=== PATIENT | female | born 1990 | race Caucasian/White ===

== ENCOUNTER 2023-10-28 12:22 | Emergency (ER) | payer OTHER, SELFPAY ==
[2023-10-28 12:23] VITALS: BP 126/80; PULSE 79; RESP 16; TEMP 36.3; O2SAT 99; BMI 28.8
[2023-10-28 13:54] LABS: Absolute Lymphocyte Count 1.69 X10^3/uL (0.83-4.51); Absolute Neutrophil Count 4.7 X10^3/uL (2.0-7.7); Basophil# 0.04 X10^3/uL; Basophil% 0.6 % (0-1); Eosinophil# 0.12 X10^3/uL; Eosinophils% 1.7 % (0-5); Hematocrit 38.5 % (37-47); Hemoglobin 12.3 g/dL (12.0-15.0); Lymphocyte # 1.69 X10^3/ul (0.83-4.51); Lymphocyte % 24.6 % (19-41); Mean Corp Hgb Conc 31.9 g/dL (32-36); Mean Corpuscular Hgb 28.5 pg (27.0-32.0); Mean Corpuscular Volume 89.3 fL (81-99); Mean Platelet Vol. 10.7 fl (6.2-12.0); Monocyte# 0.34 X10^3/uL; Monocyte% 4.9 % (0-10); NRBC Flagged by Analyzer 0 % (0-5); Neutrophil # 4.67 X10^3/uL (2.7-7.7); Neutrophil % 67.9 % (47-70); Platelet Count 239 K/mm3 (150-450); RBC Distribution Width CV 12.1 % (11.6-14.6); RBC Distribution Width SD 39.3 fl (35.1-43.9); Red Blood Count 4.31 M/mm3 (4.2-5.4); White Blood Count 6.9 K/mm3 (4.4-11.0)
[2023-10-28 14:11] LABS: hCG Titer Quant., Serum 25 mIU/mL (1-3)
[2023-10-28 14:12] LABS: ALB/GLOB Ratio 1.1 RATIO (0.9-2.4); AST(SGOT) < 3 U/L (15-37); Alanine Aminotransfer ALT/SGPT 26 U/L (13-56); Albumin, Serum 3.9 g/dL (3.2-5.0); Alkaline Phosphatase 53 U/L (45-117); Anion Gap 7 (5-15); BUN 13 mg/dL (7-18); BUN/Creat Ratio 18.8 RATIO (10-20); Calcium,Total 9.1 mg/dL (8.5-10.1); Chloride 106 mmol/L (98-107); Creatinine, Serum 0.69 mg/dL (0.55-1.02); EST Glomerular Filtration Rate 104 mL/min (>60); Est Glom Filt Rate - Afr Amer 126 mL/min (>60); Estimated Creatinine Clearance 134.51 ml/min; Globulin 3.7 g/dL (2.2-4.2); Glucose 95 mg/dL (74-106); Potassium 3.8 mmol/L (3.5-5.1); Protein, Total 7.6 g/dL (6.4-8.2); Sodium Level 140 mmol/L (136-145)
[2023-10-28 15:13] LABS: Bacteria 0 SEEN /hpf (None Seen); Mucous, Urine 0 SEEN /hpf (<or=2+); Red Blood Cells-Urine 0 SEEN /hpf (0-5); Squamous Epithelial Cells - UA 0 SEEN /hpf (5-10); White Blood Cells 0 SEEN /hpf (0-5)
[2023-10-28 15:24] LABS: Color, Urine Yellow (Yellow); Glucose, Dipstick Normal (Normal); Ketone-Dipstick Negative (Negative); Leukocyte Esterase-Dipstick Negative /ul (Negative); Nitrite-Dipstick Negative (Negative); Occult Blood-Urine Negative /ul (Negative); Protein-Dipstick Negative (Negative); Urine Bilirubin Dipstick Negative (Negative); Urine Clarity Clear (Clear); Urine Urobilinogen Normal (Normal); Urine pH 6.5 (5.0 - 8.0)
--- NOTE | 2023-10-28 15:28 | ED.VIS.FEGU ---
HPI HPI - Female History of Present Illness Chief Complaint: Vag Bld, Preg Informant: patient Pain Pain: Positive for Pelvic Pain Onset: Today Context: Sudden Onset Timing: Continuous Quality: Positive for Cramping Location: Suprapubic Bleeding Issue: Positive for Vaginal bleeding and Passing clots Onset: Today Context: Sudden Onset Timing: Continuous Current Severity: Heavy Maximum Severity: Heavy Associated Symptoms Associated Symptoms: Negative for Dysuria or Frequency Test: Positive Narrative Narrative: Patient presents with vaginal bleeding that became worse today. Patient states she started passing clots. Patient states she was saturating 1 tampon per hour earlier today. Patient states she was recently diagnosed with an incomplete miscarriage. Patient states she was told if she started to saturate a pad or tampon every hour she should come to the emergency department. Patient admits to some lower abdominal cramping. Patient states her bleeding is heavy. Patient denies passing any tissue. Patient denies any fevers or chills. PFSH PFSH Medical History no medical history no medical history Home Medications benzonatate 100 mg capsule 200 mg (2 x 100 mg) PO TID PRN PRN Cough ##20 02/21/15 [Rx Last Taken Unknown] ondansetron 4 mg disintegrating tablet 4 mg PO Q8H PRN PRN Nausea #10 tabs 02/21/15 [Rx Last Taken Unknown] dicyclomine 10 mg capsule 20 mg (2 x 10 mg) PO TIDAC PRN Abdominal Pain ##20 06/07/15 [Rx Last Taken Unknown] famotidine 20 mg tablet 20 mg PO BID ##28 06/07/15 [Rx Last Taken Unknown] ondansetron 4 mg disintegrating tablet 4 mg PO Q8H PRN PRN Nausea #10 tabs 06/07/15 [Rx Last Taken Unknown] Allergy/AdvReac Type Severity Reaction Status Date / Time latex Allergy Rash Verified 02/21/15 16:44 Surgical History (Updated 10/28/23 @ 15:[address] Yonny Apodaca DO) Hx of laparoscopy Social History Smoking Status: Current every day smoker tobacco type: cigarettes ROS ROS ED Constitutional Constitutional ED: Denies chills or fever(s) Eyes Eyes: Denies blurry vision or change in vision ENT ENT ED: Denies rhinorrhea or sore throat Cardiovascular Cardiovascular: Denies chest pain or palpitations Respiratory/Chest Respiratory/Chest: Denies cough or dyspnea Gastrointestinal Gastrointestinal: Reports abdominal pain; Denies nausea or vomiting Genitourinary Genitourinary ED: Denies dysuria or hematuria Musculoskeletal Musculoskeletal: Denies back pain or neck pain Integumentary Denies abscess or rash Neurologic Neurologic: Denies headache(s) or weakness Allergic/Immunologic Allergic/Immunologic ED: Denies mouth swelling or urticaria EXAM Physical Exam Const Vital Signs: 10/28/23 12:23 10/28/23 16:00 10/28/23 18:00 Temperature 97.3 F L Temperature Source Temporal Pulse Rate 79 70 Respiratory Rate 16 16 16 Blood Pressure 126/80 H 117/74 123/68 H Blood Pressure Mean 95 88 86 Pulse Ox 99 100 100 Oxygen Delivery Method Room Air Room Air Room Air Positive well nourished and well developed General Appearance ED: well developed and NAD HEENT Reports moist mucous membranes Neck supple and no JVD Resp normal respiratory effort and clear to auscultation bilaterally Cardio regular rate and regular rhythm GI soft to palpation and non-distended Palpation: tender suprapubic (Mild) Extremity full ROM Neuro oriented x3, CN's II-XII intact bilaterally and no sensory deficits noted Sensorium / Orientation: alert Motor Exam: strength 5/5 throughout Psych mental status grossly normal MDM MDM MDM Narrative Medical decision making narrative: Differential diagnosis includes incomplete miscarriage, dysmenorrhea, urinary tract infection, and anemia. CBC will be obtained to assess for anemia and leukocytosis. Comprehensive metabolic profile will be obtained to assess for hepatic function, renal function, and electrolyte abnormality. Quantitative hCG will be obtained to assess for . Type and Rh will be obtained to assess for Rh factor. Urinalysis will be obtained to assess for urinary tract infection and hematuria. Lab Data Attestation: I reviewed the patient's lab results. Lab results narrative: CBC was reviewed and was within normal limits. Comprehensive metabolic profile was reviewed and was essentially within normal limits. Quantitative hCG was reviewed and was 25. Urinalysis was reviewed. There is no evidence of urinary tract infection or hematuria. Blood type was reviewed and was A negative. Labs: Laboratory Results - last 24 hr 10/28/23 10/28/23 10/28/23 13:45 15:10 16:54 WBC 6.9 RBC 4.31 Hgb 12.3 Hct 38.5 MCV 89.3 MCH 28.5 MCHC 31.9 L RDW Std Deviation 39.3 RDW Coeff of Joycelyn 12.1 Plt Count 239 MPV 10.7 Immature Gran % (Auto) 0.300 Neut % (Auto) 67.9 Lymph % (Auto) 24.6 [place] % (Auto) 4.9 Eos % (Auto) 1.7 Baso % (Auto) 0.6 Absolute Neuts (auto) 4.7 Absolute Lymphs (auto) 1.69 Nucleated RBC % 0 Sodium 140 Potassium 3.8 Chloride 106 Carbon Dioxide 27.0 Anion Gap 7 BUN 13 Creatinine 0.69 Estim Creat Clear Calc 134.51 Est GFR (MDRD) Af Amer 126 Est GFR (MDRD) Non-Af 104 BUN/Creatinine Ratio 18.8 Glucose 95 Calcium 9.1 Total Bilirubin 0.20 AST < 3 L ALT 26 Alkaline Phosphatase 53 Total Protein 7.6 Albumin 3.9 Globulin 3.7 Albumin/Globulin Ratio 1.1 HCG, Quant 25 H Urine Color Yellow Urine Clarity Clear Urine pH 6.5 Ur Specific Jbphh 1.020 Urine Protein Negative Urine Glucose (UA) Normal Urine Ketones Negative Urine Occult Blood Negative Urine Nitrite Negative Urine Bilirubin Negative Urine Urobilinogen Normal Ur Leukocyte Esterase Negative Urine RBC 0 SEEN Urine WBC 0 SEEN Ur Squamous Epith Cells 0 SEEN Urine Bacteria 0 SEEN Urine Mucus 0 SEEN Blood Type A NEGATIVE Treatment and Re-Evaluation Narrative: Patient was advised of her findings. Given her quantitative hCG of only 25, I do not feel ultrasound is necessary at this time. Patient's blood type was a negative. Therefore, patient was given RhoGAM. Patient was instructed to follow-up with her SHIFT [facility]INEER in 2 to 3 days. Patient understood and was agreeable with the plan. All questions were answered. Discharge Plan Triage Chief Complaint: Vag Bld, Preg ED Provider: Yonny Apodaca Dx/Rx/DC Orders Clinical Impression: Spontaneous miscarriage Instructions: ED Miscarriage Spontaneous Prescriptions: No Action benzonatate 100 MG capsule 200 mg PO TID PRN PRN (Reason: Cough) Qty: 20 0RF ondansetron 4 MG tablet 4 mg PO Q8H PRN PRN (Reason: Nausea) Qty: 10 0RF famotidine 20 MG tablet 20 mg PO BID Qty: 28 0RF ondansetron 4 MG tablet 4 mg PO Q8H PRN PRN (Reason: Nausea) Qty: 10 0RF dicyclomine 10 MG capsule 20 mg PO TIDAC PRN (Reason: Abdominal Pain) Qty: 20 0RF Primary Care Provider: Care Physician,No Primary Referrals: Care Physician,No Primary [Primary Care Provider] - Activity Restrictions/Additional Instructions: Follow-up with your SHIFT ENGINEER in 2 days. They will continue to follow your quantitative hCG levels. Disposition Disposition: Home, Self Care
[2023-10-28 16:00] VITALS: BP 117/74; PULSE 70; RESP 16; O2SAT 100
[2023-10-28 18:00] VITALS: BP 123/68; RESP 16; O2SAT 100
[2023-10-28] MEDS: Rho(D) Immune Globulin 300 MCG (1500 Unit) Syringe IV (19:30)
[2023-10-28 19:33] VITALS: BP 123/76; PULSE 63
== END 2023-10-28 19:34 | disposition home or self-care (01) ==
PROVIDERS: Emergency Provider Emergency Medicine; Visit Provider Emergency Medicine
DX: O03.9 Complete or unspecified spontaneous abortion without complication (principal); F17.210 Nicotine dependence, cigarettes, uncomplicated
CPT/HCPCS: 80053; 81001; 84702; 85025; 86900; 86901; 90384; 99283; A4216; J2790; J2791